=== PATIENT | female | born 1985 | race Caucasian/White ===

== ENCOUNTER 2020-08-16 22:51 | Inpatient (IN) ==
[2020-08-16] MEDS ORDERED: LACTATED RINGER'S 1,000 ML IV PRN (23:06)
--- NOTE | 2020-08-16 23:16 | Obstetrical Progress Note ---
Date of Service August 16, 2020 Subjective Admit Note 35 F P000 at 38.5 weeks admitted in active labor. Cervix 8/100/0/vertex/intact. GBS is negative. Covid testing is pending. FHT Cat 1. Will admit and anticipate normal delivery.
[2020-08-16] MEDS: OXYTOCIN 30 UNITS/500 ML BAG IV PRN (23:53)
--- NOTE | 2020-08-17 00:17 | Delivery Summary ---
Vaginal Delivery Summary Date of Service August 17, 2020 Vaginal Delivery Summary Delivery Note live male ANDRES over intact perineum with delayed cord clamping and Apgars 8/9 weight pending. Cord blood obtained and placenta delivered spontaneously and intact. Small ronald-urethral tear noted. 1% Lidocaine plain used to infiltrate region and 4/0 Vicryl suture placed. EBL 250 ml. Final sponge, needle and instrument count are correct. Mom and baby stable
[2020-08-17] MEDS: OXYTOCIN 30 UNITS/500 ML BAG IV PRN (00:31)
[2020-08-17] MEDS ORDERED: SUPERCREAM 0.870% 15 GM JAR EXT PRN (00:49)
[2020-08-17] MEDS ORDERED: DIPHTHERIA/TETANUS/PERTUSSIS 0.5 ML SYR/VIAL IM ONE (00:49)
[2020-08-17] MEDS ORDERED: BENZOCAINE 20% AER SPR 82.5 GM CAN EXT PRN (00:49)
[2020-08-17] MEDS ORDERED: ACETAMINOPHEN 325 MG TAB PO PRN (00:49)
[2020-08-17] MEDS ORDERED: OXYTOCIN 30 UNITS/500 ML BAG IV PRN (00:49)
[2020-08-17] MEDS ORDERED: HYDROCORTISONE ACETATE 25 MG SUPP PR PRN (00:49)
[2020-08-17] MEDS ORDERED: IBUPROFEN 600 MG TAB PO PRN (00:49)
[2020-08-17] MEDS ORDERED: bisacodyL 10 MG SUPP PR PRN (00:49)
[2020-08-17] MEDS ORDERED: LACTATED RINGER'S 1,000 ML IV SCH (00:49)
[2020-08-17 06:38] LABS: Hematocrit (blood only) 37.5 % (37-47); Hemoglobin 12.9 g/dL (12.0-16.0); Mean Corpuscular Hemoglobin 33.1 pg (25-34); Mean Corpuscular Hgb Conc 34.4 g/dL (32-36); Mean Corpuscular Volume 96.2 fL (80-100); Mean Platelet Volume 11.2 fL (7.4-10.4); Platelet Count 180 K/uL (130-400); RDW Coefficient of Variation 13.2 % (11.5-14.5); RDW Standard Deviation 46.1 fL (36.4-46.3)
[2020-08-17] MEDS ORDERED: LIDOCAINE HCL 1% 20 ML VIAL ONE (07:11)
[2020-08-17] MEDS ORDERED: ERYTHROMYCIN OP OINT 1 GM PKT ONE (07:12)
[2020-08-17] MEDS: DOCUSATE SODIUM 100 MG CAP PO SCH ×2 (08:37→19:49)
[2020-08-17] MEDS: FERROUS SULFATE 325 MG TAB PO SCH (08:37)
[2020-08-17] MEDS: PRENATAL VITAMIN 1 TAB PO SCH (08:38)
--- NOTE | 2020-08-17 09:26 | Obstetrical Progress Note ---
Date of Service August 17, 2020 Assessment & Plan Admission and Anticipated Discharge Date Admission Date: August 16, 2020 Subjective Patient is seen and examined. She feels well, no complaints. Ambulating without dizziness Voiding without difficulty Tolerating regular diet with out N&V Bleeding is minimal No fever/ chills/ CP/ SOB/ N&V/ Leg pain Breast feeding without problems Vital Signs Temp Pulse Pulse Resp BP BP Pulse Ox 08/17/20 03:25 36.4 C L 103 H 16 119/83 97 08/17/20 02:41 109 H 104/73 08/17/20 02:26 82 115/68 08/17/20 02:11 73 18 115/61 08/17/20 01:56 76 117/63 08/17/20 01:42 71 18 115/61 08/17/20 01:27 76 113/64 08/17/20 01:12 70 18 126/58 L 08/17/20 00:57 76 18 118/60 08/17/20 00:42 36.9 C 80 18 121/77 08/17/20 00:27 88 18 123/76 08/17/20 00:11 131 H 18 119/65 08/17/20 00:00 100 H 138/78 08/16/20 23:30 99 H 136/84 Lab Results 08/16/20 08/16/20 08/17/20 Range/Units 23:15 23:15 06:24 WBC 17.60 H (4.8-10.8) K/uL RBC 3.90 L (4.2-5.4) M/uL Hgb 12.9 (12.0-16.0) g/dL Hct 37.5 (37-47) % MCV 96.2 (80-100) fL MCH 33.1 (25-34) pg MCHC 34.4 (32-36) g/dL RDW Std Deviation 46.1 (36.4-46.3) fL RDW Coeff of Jack 13.2 (11.5-14.5) % Plt Count 180 (130-400) K/uL MPV 11.2 H (7.4-10.4) fL COVID-19 Eval [facility] SARS-CoV-2, RNA, NAAT NEGATIVE (NEGATIVE) PE: General: Alert, orientedx3, NAD Abd: soft, NT, fundus firm, below Umbilicus Perineum intact, Lochia rubra minimal Ext; NT, no edema AP: 35 yo s/p , ppd# 1 VSS Afebrile doing well Continue routine care All questions were answered D/C home tomorrow Results & Data ([facility]) Vital Signs (Past 12 Hours) Vital Signs Temp Pulse Pulse Resp BP BP Pulse Ox 08/17/20 03:25 36.4 C L 103 H 16 119/83 97 08/17/20 02:41 109 H 104/73 08/17/20 02:26 82 115/68 08/17/20 02:11 73 18 115/61 08/17/20 01:56 76 117/63 08/17/20 01:42 71 18 115/61 08/17/20 01:27 76 113/64 08/17/20 01:12 70 18 126/58 L 08/17/20 00:57 76 18 118/60 08/17/20 00:42 36.9 C 80 18 121/77 08/17/20 00:27 88 18 123/76 08/17/20 00:11 131 H 18 119/65 08/17/20 00:00 100 H 138/78 08/16/20 23:30 99 H 136/84
[2020-08-18 06:27] LABS: Basophils # (auto) 0.04 K/uL (0-0.2); Basophils % (auto) 0.4 %; Eosinophils # (auto) 0.06 K/uL (0-0.5); Eosinophils % (auto) 0.6 %; Immature Granulocytes # (auto) 0.05 K/uL (0.00-0.02); Immature Granulocytes % (auto) 0.5 %; Lymphocytes # (auto) 2.41 K/uL (1.2-3.4); Lymphocytes % (auto) 23.4 %; Mean Corpuscular Hgb Conc 34.3 g/dL (32-36); Mean Corpuscular Volume 96.2 fL (80-100); Mean Platelet Volume 10.7 fL (7.4-10.4); Monocytes # (auto) 0.83 K/uL (0.11-0.59); Monocytes % (auto) 8.1 %; Neutrophils # (auto) 6.92 K/uL (1.4-6.5); Platelet Count 175 K/uL (130-400); RDW Coefficient of Variation 13.5 % (11.5-14.5); RDW Standard Deviation 47.5 fL (36.4-46.3); Red Blood Count 3.64 M/uL (4.2-5.4); White Blood Count 10.31 K/uL (4.8-10.8)
[2020-08-18] MEDS: DOCUSATE SODIUM 100 MG CAP PO SCH (09:06)
[2020-08-18] MEDS: FERROUS SULFATE 325 MG TAB PO SCH (09:06)
[2020-08-18] MEDS: PRENATAL VITAMIN 1 TAB PO SCH (09:07)
--- NOTE | 2020-08-18 11:28 | Obstetrical Progress Note ---
Date of Service August 18, 2020 Assessment & Plan Admission and Anticipated Discharge Date Admission Date: August 16, 2020 Subjective Patient is seen and examined. She feels well, no complaints. Ambulating without dizziness Voiding without difficulty Tolerating regular diet with out N&V Bleeding is minimal No fever/ chills/ CP/ SOB/ N&V/ Leg pain Breast feeding without problems Vital Signs Temp Pulse Resp BP 08/18/20 08:00 36.8 C 75 16 115/74 08/18/20 00:09 36.7 C 80 18 114/70 08/17/20 19:52 36.5 C 90 18 118/74 08/17/20 16:40 36.9 C 78 18 106/65 08/17/20 11:40 36.4 C L 66 20 119/72 Lab Results 08/16/20 08/16/20 08/17/20 Range/Units 23:15 23:15 06:24 WBC 17.60 H (4.8-10.8) K/uL RBC 3.90 L (4.2-5.4) M/uL Hgb 12.9 (12.0-16.0) g/dL Hct 37.5 (37-47) % MCV 96.2 (80-100) fL MCH 33.1 (25-34) pg MCHC 34.4 (32-36) g/dL RDW Std Deviation 46.1 (36.4-46.3) fL RDW Coeff of Jack 13.2 (11.5-14.5) % Plt Count 180 (130-400) K/uL MPV 11.2 H (7.4-10.4) fL Immature Gran % (Auto) % Neut % (Auto) % Lymph % (Auto) % [place] % (Auto) % Eos % (Auto) % Baso % (Auto) % Neut # (Auto) (1.4-6.5) K/uL Lymph # (Auto) (1.2-3.4) K/uL [place] # (Auto) (0.11-0.59) K/uL Eos # (Auto) (0-0.5) K/uL Baso # (Auto) (0-0.2) K/uL Immature Gran # (Auto) (0.00-0.02) K/uL COVID-19 Eval [facility] SARS-CoV-2, RNA, NAAT NEGATIVE (NEGATIVE) 08/18/20 Range/Units 05:43 WBC 10.31 (4.8-10.8) K/uL RBC 3.64 L (4.2-5.4) M/uL Hgb 12.0 (12.0-16.0) g/dL Hct 35.0 L (37-47) % MCV 96.2 (80-100) fL MCH 33.0 (25-34) pg MCHC 34.3 (32-36) g/dL RDW Std Deviation 47.5 H (36.4-46.3) fL RDW Coeff of Jack 13.5 (11.5-14.5) % Plt Count 175 (130-400) K/uL MPV 10.7 H (7.4-10.4) fL Immature Gran % (Auto) 0.5 % Neut % (Auto) 67.0 % Lymph % (Auto) 23.4 % [place] % (Auto) 8.1 % Eos % (Auto) 0.6 % Baso % (Auto) 0.4 % Neut # (Auto) 6.92 H (1.4-6.5) K/uL Lymph # (Auto) 2.41 (1.2-3.4) K/uL [place] # (Auto) 0.83 H (0.11-0.59) K/uL Eos # (Auto) 0.06 (0-0.5) K/uL Baso # (Auto) 0.04 (0-0.2) K/uL Immature Gran # (Auto) 0.05 H (0.00-0.02) K/uL COVID-19 Eval Order SARS-CoV-2, RNA, NAAT (NEGATIVE) PE: General: Alert, orientedx3, NAD Abd: soft, NT, fundus firm, below Umbilicus Perineum intact, Lochia rubra minimal Ext; NT, no edema AP: 35 yo s/p , ppd# 2 VSS Afebrile doing well Continue routine care All questions were answered D/C home , f/u in office Results & Data ([facility]) Vital Signs (Past 12 Hours) Vital Signs Temp Pulse Resp BP 08/18/20 08:00 36.8 C 75 16 115/74 01/17/21 00:09 36.7 C 80 18 114/70
[2020-08-18] MEDS ORDERED: bisacodyL 5 MG TABEC PO SCH (20:00)
--- NOTE | 2020-08-29 11:29 | Coding Query ---
CODING QUERY To promote full compliance with coding requirements relating to patient care, provider participation is requested in all cases of mission manager uncertainty. Please assist us with the question(s) below: Coding Question(s): The Vaginal Delivery Summary documents Date of Service of 08/17/20, however, the EMR shows date of delivery to be 08/16/20. Please specify below, regarding the date of delivery. (x ) 08/16/20 ( ) 08/17/20 ( ) Other: Please Specify Physician's Response(s): Thank you Carmencita Silver Principal Diagnosis: "that condition established after study, to be chiefly responsible for occasioning the admission of the patient to the hospital for care." Co-Existing Principal Diagnosis: "when two or more diagnoses equally meet the criteria for principal diagnosis as determined by the circumstances of admission, diagnostic work up, and/or therapy provided, and the Alphabetic Index, Tabular List, or another coding guideline does not provide sequencing direction, any one of the diagnoses may be sequenced first." "When the physician has documented what appears to be a current diagnosis in the body of the record, but has not included the diagnosis in the final diagnostic statement, the physician should be asked whether the diagnosis should be added." (Source [facility] 2 QTR90. p3-4) RICKY
== END 2020-08-18 13:00 | disposition home or self-care (01) | DRG 807 ==
LOC: OPB 22:51 → 4S1 22:55 → 4S2 08-17 03:35

== ENCOUNTER 2024-01-26 14:09 | Inpatient (IN) ==
[2024-01-26] MEDS: OXYTOCIN 10 UNITS/ML VIAL ONE (14:20)
[2024-01-26] MEDS ORDERED: LIDOCAINE 1% LOCAL 20 ML VIAL INFIL PRN (14:23)
[2024-01-26] MEDS ORDERED: OXYTOCIN 30 UNITS/NSS 30 UNITS/500 ML BAG IV PRN (14:23)
[2024-01-26] MEDS ORDERED: BENZOCAINE 20% SPRY 85 APPLN/85 GM CAN EXT PRN (14:27)
[2024-01-26] MEDS ORDERED: HYDROCORTISONE ACETATE 25 MG SUPP PR PRN (14:27)
[2024-01-26] MEDS ORDERED: OXYTOCIN 10 UNITS/ML 10ML VIAL IM ONE (14:27)
[2024-01-26] MEDS ORDERED: IBUPROFEN 600 MG TAB PO PRN (14:27)
[2024-01-26] MEDS ORDERED: ACETAMINOPHEN 325 MG TAB PO PRN (14:27)
[2024-01-26] MEDS ORDERED: bisacodyL 10 MG SUPP PR PRN (14:27)
--- NOTE | 2024-01-26 14:31 | Delivery Summary ---
Vaginal Delivery Summary Date of Service January 26, 2024 Vaginal Delivery Summary Patient is 38 yo at 38.5 who presented to L&D in active labor and was found to be fully dilated and desired to push. Her contractions started as irregular around 11 am and then got more regular and painful around 1 pm. No LOF/VB, + FM's. GBS negative She pushed with 2 contractions and delivered the head and then shoulders with minimal traction. Tight nuchal cordx1, reduced. The baby was handed off to the mother. The cord was clampedx2 and cut at 1 minute. The vagina and perineum were checked and found to be intact. The placenta was delivered spontaneously as intact and complete. The uterus was explored and found to be empty. EBL was 100 ml. The fundus was firm The baby was a viable male infant, Apgars 8/9, the weight is pending The mother and the baby tolerated the procedure well. No complications happened and I was present during whole procedure.
[2024-01-26 15:24] LABS: Hematocrit (blood only) 40.9 % (37.0-47.0); Hemoglobin 13.9 g/dl (12.0-16.0); Mean Corpuscular Hemoglobin 32.9 pg (25.0-34.0); Mean Corpuscular Volume 96.7 fL (80.0-100.0); Mean Platelet Volume 10.9 fL (9.4-12.4); Platelet Count 177 K/uL (130-400); RDW Coefficient of Variation 13.5 % (11.5-14.5); RDW Standard Deviation 47.8 fL (36.4-46.3); Red Blood Count 4.23 M/uL (4.20-5.40); White Blood Count 11.46 K/ul (4.8-10.8)
[2024-01-26] MEDS: DOCUSATE SODIUM 100 MG CAP PO SCH (20:58)
--- OUTSIDE RECORDS SUMMARY | 2024-01-27 03:31 | External Medical Summary | Summary of Care ---
Author Name Unknown Organization [facility] Address [address] [place] [address] Phone [phone] Care Team Providers Care Board Operator Name Role Phone Tanya Diane Boatengly Primary Care Provider Reason for Visit * Reason Comments Outpatient Testing Encounter Details Date Type Department Care Team (Late st Contact Info) Description 11/16/2023 8:20 AM EDT Laboratory Laboratory, [facility] [address] [place] [address] [facility] [address] [place] [address] Encounter for supervision of other normal in second trimester Allergies Active Allergy Reactions Criticality Noted Date Comments Pollen 12/22/2019 documented as of this encounter (statuses as of 11/16/2023) Medications Medication Sig Dispensed Refills Start Date End Date Status 19 29-1 MG Oral Tablet Chewable Take by mouth. 0 Activ e documented as of this encounter (statuses as of 11/16/2023) Active Problems Problem Noted Date Diagnosed Date Choroid plexus cysts, , affecting care of mother, antepartum 10/19/2023 Overview: Low risk NIPT Elderly multigravida 06/28/2023 Allergic conjunctivitis, bilateral 03/26/2022 Allergic rhinitis 03/26/2022 Supervision of normal 03/13/2020 Last Assessment & Plan: 06/07/2020 Tdap Vaccine administered per clinic protocol. Pt given VIS(vaccine information sheet) Deanna Morin LPN Encounter for other screenin g for malignant neoplasm of breast 09/12/2018 Overview: Patient s lifetime risk of breast cancer is up to 33% Beginning at age her current age (10 years prior to the first breast cancer diagnosis in the family), it is recommended that Ms. Hinds have both mammogram and breast MRI annually, alternating every 6 months (for example, mammogram in September and MRI in March). Family history of malignant neoplasm of breast 0 09/09/2018 Overview: Mother (living, 65) had breast cancer at age 47. Had negative breast cancer-related genetic testing. Paternal aunt (living, 62) had breast cancer at age 40. Paternal grandfather (living, 92) had prostate cancer in late 80s-90. Treated and no longer problematic Paternal great-aunt (sister of PGM, ) had breast cancer Paternal great-aunt (brother of PGM, ) had prostate cancer Estimated Date of Delivery Comme nts Yes 02/04/2024 Based on last me nstrual period of 04/30/2023 (Exact Date) documented as of this encounter (statuses as of 11/16/2023) Immunizations Name Administration Dates Next Due COVID-19, MRNA-LNP, 23-24, P F, 30 MCG/0.3 mL, 12 YRS AND ABOVE, IM (PFIZER-Comirnaty) 05/14/2023 Seasonal Influenza, PF, 6 M & above, IM , (FluLaval or Fluzone) 05/03/2023,05/08/2020 TDAP (age 10 and older)(Boostrix) 11/16/2023,01/2020 documented as of this encounter Social History Tobacco Use Types Packs/Day Years Used Date Smoking Tobacco: Never Smokeless Tobacco: Never Comments:No passive smoke ex posures Alcohol Use Standard Drinks/Week Comments Not Currently 1.7 (1 standard drink = 0.6 oz p ure alcohol) PHQ-2 Answer Date Recorded PHQ-2 Score 0 03/04/2020 Hunger Vital Sign Answer Date Recorded Within the past 12 months, y ou worried that your food would run out before you got the money to buy more. Never true 06/28/20 23 Within the past 12 months, t he food you bought just didn't last and you didn't have money to get more. Never true 06/28/2023 [place] Depression Scale Answer Date Recorded [place] Depression Scale Total 4 06/28/2023 The thought of harming myself has occurred to me . Never 06/28/2023 Estimated Date of Delivery Comme nts Yes 02/04/2024 Based on last me nstrual period of 04/30/2023 (Exact Date) Sex and Gender Information Value Date Recorded Sex Assigned at Female 06/28/2023 1:10 PM EST Gender Identity Female 06/28/2023 1:10 PM EST Sexual Orientation Straight 06/28/2023 1: 10 PM EST Job Start Date Occupation Industry Not on file Not on file Not on file documented as of this encounter Plan of Treatment Upcoming Encounters Date Type Department Care Team (Late st Contact Info) Description 11/30/2023 8:30 AM EDT Office Visit Gynecology/Obstetrics [facility] [address] [place] [address] Christin Penny CRNP [address] [place] [address] 04/21/2024 7:15 AM EDT Office Visit Gynecology/Obstetrics [facility] [address] [place] [address] Mine Morales PA-C [address] [place] [address] Pending Results Name Type Priority Associated Diagnoses Date /Time 50-G GESTATIONAL GLUCOSE, 1 HOUR Lab Routine Encounter for supervision of other normal in second trimester 11/16/2023 9:27 AM EDT SYPHILIS ANTIBODY SCREEN WITH REFLEX TO RPR Lab Routine Encounter for supervision of other normal in second trimester 11/16/2023 9:27 AM EDT CBC WITH WBC DIFFERENTIAL AND ANEMIA REFLEX WORKUP Lab Routine Encounter for supervision of other normal in second trimester 11/16/2023 9:27 AM EDT SYPHILIS ANTIBODY SCREEN Lab Routine Encounter for supervision of other normal in second trimester 11/16/2023 9:27 AM EDT ANEMIA CBC Lab Routine Encounter for supervision of other normal in second trimester 11/16/2023 9:27 AM EDT DIFFERENTIAL, AUTOMATED Lab Routine Encounter for supervision of other normal in second trimester 11/16/2023 9:27 AM EDT ANEMIA REFLEX CHEMISTRY HOLD Lab Routine Encounter for supervision of other normal in second trimester 11/16/2023 9:27 AM EDT Health Maintenance Due Date Last Done Comments Hepatitis B (1 of 3 - 19+ 3-dose series) 2006 HPV/Co-Test 2017 Depression Screening 02/26/2021 02/27/2020 Cervical Cancer Screening 09/29/2024 Pap Smear 09/29/2024 09/29/2021, 09/12/2018, 08/19/2011 DTaP,Tdap,and Td Vaccines (3 - Td or Tdap) 11/15/2033 11/16/2023, 06/07/2020 GARDASIL-HPV IMMUNIZATION SERIES Completed 02/15/2014, 10/04/2013, 08/14/2013 Influenza Vaccine (FLU shot) Completed 09/2022, 05/08/2020, 05/08/2020 COVID-19 Vaccine Completed 05/14/2023 MENINGOCOCCAL (MENACTRA/MENVEO) Aged Out No longer eligible b ased on patient's age to complete this topic Pneumococcal Vaccine: Pediatrics (0 to 5 Years) and At-Risk Patients (6 to 64 Years) Aged Out No longer eligible b ased on patient's age to complete this topic documented as of this encounter Medical Devices Not on filedocumented as of this encounter Visit Diagnoses Diagnosis Encounter for supervision of other normal in second trimester documented in this encounter Care Teams Board Operator Relationship Specialty Start Date End Date Diane Martínez DO [address] [place] [address] PCP - General Family Medicine 09/03/11 documented as of this encounter
--- OUTSIDE RECORDS SUMMARY | 2024-01-27 03:31 | External Medical Summary | Summary of Care ---
Author Name Unknown Organization [facility] Address [address] [place] [address] Phone [phone] Care Team Providers Care Extrusion Line Operator Name Role Phone Ericrosa Diane Linn DO Primary Care Provider Reason for Visit * Reason Comments Return Visit Encounter Details Date Type Department Care Team (Late st Contact Info) Description 01/25/2024 8:30 AM EDT Office Visit Gynecology/Obstetric s [facility] [address] [place] [address] Christin Penny CRNP [address] [facility] [place] [address] Encounter for supervision of other normal in third trimester*; Multigravida of advanced maternal age in third trimester; Choroid plexus cyst of fetus affecting care of mother, antepartum, single or unspecified fetus Allergies Active Allergy Reactions Criticality Noted Date Comments Pollen 12/22/2019 documented as of this encounter (statuses as of 01/25/2024) Medications Medication Sig Dispensed Refills Start Date End Date Status 19 29-1 MG Oral Tablet Chewable Take by mouth. Activ e documented as of this encounter (statuses as of 01/25/2024) Active Problems Problem Noted Date Diagnosed Date [...] as of this encounter (statuses as of 01/25/2024) Immunizations Name Administration Dates Next Due COVID-19, [...] p ure alcohol) PHQ-2 Answer Date Recorded PHQ Adult Total Score 0 11/30/2023 Hunger Vital Sign Answer Date Recorded Within the past 12 months, y ou worried that your food would run out before you got the money to buy more. Never true 06/28/20 23 Within the past 12 months, t he food you bought just didn't last and you didn't have money to get more. Never true 06/28/2023 [place] Depression Scale Answer Date Recorded [place] Depression Scale Total 3 11/30/2023 The thought of harming myself has occurred to me . Never 11/30/2023 Childcare Answer Date Recorded Do you feel overwhelmed with taking care of a child, family member or friend? No 06/28/2023 Does your family need help f inding childcare? (Household - for ages 0-17 years) Not on file 06/28/2023 Clothing Answer Date Recorded Have you been unable to get clothing when it was really needed? No 06/28/2023 Is your family able to get c lothes or diapers when needed? (Household - for ages 0-17 years) Not on file 06/28/2023 Personal Safety Answer Date Recorded Do you feel unsafe or have concerns for your saf ety? No 06/28/2023 Do you have concerns for you r family's safety? (Household - for ages 0-17 years) Not on file 06/28/2023 Utilities Answer Date Recorded Do you have trouble paying y our heating, water, or electric bill? No 06/28/2023 Is your family able to pay t he heat, water, or electric bill? (Household - for ages 0-17 years) Not on file 06/28/2023 Does your family have access to good internet? (Household - for ages 0-17 years) Not on file 06/28/2023 Employment Status Answer Date Recorded Are you unemployed or without regular income? No 06/28/2023 Does the household have a re gular source of income? (Household - for ages 0-17 years) Not on file 06/28/2023 Social Connections Answer Date Recorded How often do you feel lonely or isolated from th ose around you? Never 06/28/2023 Financial Resource Strain Answer Date R ecorded Do you have any trouble payi ng for your medications, or do you think you might in the future? No 06/28/2023 Does your family have troubl e paying for medicine? (Household - for ages 0-17 years) Not on file 06/28/2023 Transportation Needs Answer Date Record ed READ ONLY Do you have troubl e getting a ride to medical visits or work? Never True 06/28/2023 Does your family have a hard time getting a ride to doctors visits? (Household - for ages 0-17 years) Not on file 06/28/2023 Has lack of transportation k ept you from medical appointments, meetings, work, or from getting things needed for daily living? Check all that apply. (Adult - for ages 18 years and over) Not on file 06/28/2023 Do you (or your family) have trouble finding or paying for a ride (transportation)? (Household - for ages 0-17 years) Not on file 06/28/2023 Housing Stability Answer Date Recorded Do you currently live in a s helter or have no steady place to sleep at night? No 06/28/2023 READ ONLY Do you think you a re at risk of becoming homeless? No 06/28/2023 Does your family worry about paying for your home or becoming homeless? (Household - for ages 0-17 years) Not on file 1 08/28/2022 Are you homeless or worried that you might be in the future? (Adult - for ages 18 years and over) Not on file Are you (or your family) archie eless or worried that you might be in the future? (Household - for ages 0-17 years) Not on file Food Insecurity Answer Date Recorded Do you need food for this week? No 06/28/2023 Are you able to get enough f ood for your family? (Household - for ages 0-17 years) Not on file 06/28/2023 Does your family need food t his week? (Household - for ages 0-17 years) Not on file 06/28/2023 Do you always have enough fo od for your family? (Household - for ages 0-17 years) Not on file 06/28/2023 Estimated Date of Delivery Comme nts [...] on file documented as of this encounter Last Filed Vital Signs Vital Sign Reading Time Taken Comments Blood Pressure 100/64 01/25/2024 8:27 AM EDT Pulse - - Temperature - - Respiratory Rate - - Oxygen Saturation - - Inhaled Oxygen Concentration - - Weight 71.6 kg (157 lb 12.8 oz) 01/25/2024 8:27 AM EDT Height - - Body Mass Index 25.47 01/18/2024 8:45 AM EDT documented in this encounter Progress Notes * Christin Penny CRNP - 01/25/2024 8:31 AM EDT 38w4d Having some irregular menstrual cramping x1 day. No bleeding, leaking. Good movement. Reviewed labor signs and [facility], when to call. Return in 1 week, sooner prn. CASEY Aleman * Alicia Plaza LPN - 01/25/2024 8:27 AM EDT 38w4d Denies vaginal bleeding/rom + movement Noticing some period like cramping since yesterday- nothing consistent documented in this encounter Plan of Treatment Upcoming Encounters Date Type Department Care Team (Late st Contact Info) Description 02/01/2024 8:45 AM EDT Office Visit Gynecology/Obstetrics [place] [phone] Christin Penny CRNP [address] [place] [address] 04/21/2024 7:15 AM EDT Office Visit Gynecology/Obstetrics [facility] [address] [place] [address] Mine Morales PA-C [address] [place] [address] Health Maintenance Due Date Last Done Comments Hepatitis B (1 of 3 - 19+ 3-dose series) 2006 Diabetes Screening 10/07/2014 10/08/2011 HPV/Co-Test 2017 Cervical Cancer Screening 09/29/2024 Pap Smear 09/29/2024 09/29/2021, 09/12/2018, 08/19/2011 Depression Screening 11/29/2024 11/30/2023 DTaP,Tdap,and Td Vaccines (3 - Td or [...] Encounter for supervision of other normal in third trimester- Primary Multigravida of advanced maternal age in third trimester Choroid plexus cyst of fetus affecting care of mother, antepartum, single or unspecified fetus documented in this encounter Care Teams Extrusion Line Operator Relationship Specialty Start Date End Date Diane Martínez DO [facility] [address] [place] [address] PCP - General Family Medicine 09/03/11 documented as of this encounter
--- OUTSIDE RECORDS SUMMARY | 2024-01-27 03:31 | External Medical Summary | Summary of Care ---
Author Name Unknown Organization [facility] Address [address] [place] [address] Phone [phone] Care Team Providers Care Access Registrar Name Role Phone Ericrosa Diane Linn DO Primary Care Provider Reason for Visit * Reason Comments Return Visit Encounter Details Date Type Department Care Team (Late st Contact Info) Description 12/28/2023 8:45 AM EDT Office Visit Gynecology/Obstetric s [facility] [address] [place] [address] Christin Penny CRNP [address] [place] [address] Encounter for supervision of other normal in third trimester*; Multigravida of advanced maternal age in third trimester; Choroid plexus cyst of fetus affecting care of mother, antepartum, single or unspecified fetus Allergies Active Allergy Reactions Criticality Noted Date Comments Pollen 12/22/2019 documented as of this encounter (statuses as of 12/28/2023) Medications Medication Sig Dispensed Refills Start Date End Date Status 19 29-1 MG Oral Tablet Chewable Take by mouth. Activ e documented as of this encounter (statuses as of 12/28/2023) Active Problems Problem Noted Date Diagnosed Date [...] as of this encounter (statuses as of 12/28/2023) Immunizations Name Administration Dates Next Due COVID-19, [...] money to get more. Never true 06/28/2023 [place] Depression Scale Answer Date Recorded [place] Depression Scale Total 3 11/30/2023 The thought of harming myself has occurred to me . Never 11/30/2023 Estimated Date of Delivery Comme nts Yes [...] Sign Reading Time Taken Comments Blood Pressure 96/70 12/28/2023 8:26 AM EDT Pulse - - Temperature - - Respiratory Rate - - Oxygen Saturation - - Inhaled Oxygen Concentration - - Weight 70.8 kg (156 lb) 12/28/2023 8:26 AM EDT Height - - Body Mass Index 25.18 11/16/2023 8:46 AM EDT documented in this encounter Progress Notes * Christin Penny CRNP - 12/28/2023 8:31 AM EDT 34w4d Baby moving well, no ctx/leaking/bleeding. Provided with labor instructions. Discussed GBS swab at next visit. Return in 2 weeks. CASEY Aleman * Alicia Plaza LPN - 12/28/2023 8:26 AM EDT 34w4d Denies vaginal bleeding/rom + movement Labor instructions given today documented in this encounter Plan of Treatment Upcoming Encounters Date Type Department Care Team (Late st Contact Info) Description 01/11/2024 8:30 AM EDT Office Visit Gynecology/Obstetrics [facility] [address] [place] [address] Christin Penny CRNP [address] [place] [address] 01/18/2024 8:45 AM EDT Office Visit Gynecology/Obstetrics [facility] [address] [place] [address] Gibran Cox MD [address] [place] [address] 01/25/2024 8:30 AM EDT Office Visit Gynecology/Obstetrics [facility] [address] [place] [address] Christin Penny CRNP [address] [place] [address] 02/01/2024 8:45 AM EDT Office Visit Gynecology/Obstetrics [facility] [address] [place] [address] Christin Penny CRNP [address] [place] [address] 04/21/2024 7:15 AM EDT Office Visit Gynecology/Obstetrics [facility] [address] [place] [address] Mine Morales PA-C [address] [place] [address] Health Maintenance Due Date Last Done Comments [...] fetus documented in this encounter Care Teams Access Registrar Relationship Specialty Start Date End Date Diane Martínez DO [address] [place] [address] PCP - General Family Medicine 09/03/11 documented as of this encounter
--- OUTSIDE RECORDS SUMMARY | 2024-01-27 03:31 | External Medical Summary | Summary of Care ---
Author Name Unknown Organization [facility] Address [address] [place] [address] Phone [phone] Care Team Providers Care Behavioral Sciences Instructor Name Role Phone Ericrosa Diane Linn DO Primary Care Provider Reason for Visit * Reason Comments Return Visit Encounter Details Date Type Department Care Team (Late st Contact Info) Description 11/30/2023 8:30 AM EDT Office Visit Gynecology/Obstetric s [facility] [address] [place] [address] Christin Penny CRNP [address] [facility] [place] [address] Encounter for supervision of other normal in third trimester*; Multigravida of advanced maternal age in third trimester; Choroid plexus cyst of fetus affecting care of mother, antepartum, single or unspecified fetus Allergies Active Allergy Reactions Criticality Noted Date Comments Pollen 12/22/2019 documented as of this encounter (statuses as of 11/30/2023) Medications Medication Sig Dispensed Refills Start Date End Date Status 19 29-1 MG Oral Tablet Chewable Take by mouth. 0 Activ e documented as of this encounter (statuses as of 11/30/2023) Active Problems Problem Noted Date Diagnosed Date [...] as of this encounter (statuses as of 11/30/2023) Immunizations Name Administration Dates Next Due COVID-19, [...] money to get more. Never true 06/28/2023 [place] Depression Scale Answer Date Recorded [place] Depression Scale Total 3 11/30/2023 The thought [...] Sign Reading Time Taken Comments Blood Pressure 98/60 11/30/2023 8:18 AM EDT Pulse - - Temperature - - Respiratory Rate - - Oxygen Saturation - - Inhaled Oxygen Concentration - - Weight 69.4 kg (153 lb) 11/30/2023 8:18 AM EDT Height - - Body Mass Index 24.69 11/16/2023 8:46 AM EDT documented in this encounter Progress Notes * Christin Penny CRNP - 11/30/2023 8:28 AM EDT 30w4d Doing well, good movement. No cramping/bleeding. Working on getting a breast pump. Return in 2 weeks. CASEY Aleman documented in this encounter Plan of Treatment Upcoming Encounters Date Type Department Care Team (Late st Contact Info) Description 12/14/2023 8:30 AM EDT Office Visit Gynecology/Obstetrics [facility] [address] [facility] [place] [address] Christin Penny CRNP [address] [place] [address] 12/28/2023 8:45 AM EDT Office Visit Gynecology/[facility]s [facility] [address] [place] [address] BackChristin vasquez CRNP [address] [place] [address] 01/11/2024 8:30 AM EDT Office Visit Gynecology/[facility]s [facility] [address] [address] Christin Penny CRNP [address] [place] [address] 01/18/2024 8:45 AM EDT Office Visit [facility] [address] [place] [address] Gibran Cox MD [address] [place] [address] 01/25/2024 8:30 AM EDT Office Visit Gynecology/Obstetrics [facility] [address] [place] [address] Christin Penny CRNP [address] [place] [address] 02/01/2024 8:45 AM EDT Office Visit Gynecology/[facility]s [facility] [address] [place] [address] Christin Penny CRNP [address] [place] [address] 04/21/2024 7:15 AM EDT Office Visit Gynecology/[facility]s [facility] [address] [place] [address] Mine Morales PA-Elizabeth [address] [place] [address] Health Maintenance Due Date Last Done Comments Hepatitis B (1 of 3 - 19+ 3-dose series) 2006 HPV/Co-Test 2017 Cervical Cancer Screening 09/29/2024 Pap [...] fetus documented in this encounter Care Teams Behavioral Sciences Instructor Relationship Specialty Start Date End Date Diane Martínez DO [address] [place], [place] [address] PCP - General Family Medicine 09/03/11 documented as of this encounter
--- OUTSIDE RECORDS SUMMARY | 2024-01-27 03:31 | External Medical Summary ---
Author Name Unknown Address Unknown Organization [id number]:LAB[facility]ATORY [place] [address] [place] [address] Laboratory Report Ordering Provider Test Date Status JARON ARTHUR 01/11/2024 08:44:01 Final Observation Date Value Abnormality Reference (Units ) Status Streptococcus agalactiae DNA [Presence] in Specimen by KATELIN with probe detection 01/11/2024 08:44:01 Negative Negative Final No Group B Streptococcus det ected by culture-enhanced PCR (amplified probe). GBS GBSCT - [facility] 01/11/2024 08:44:01 0.0 Final GBS SPCCT - [facility] 01/11/2024 08:44:01 30.1 Final Performing Location LABORATORY [facility] [place] [facility] [place] [address]
--- OUTSIDE RECORDS SUMMARY | 2024-01-27 03:31 | External Medical Summary | Summary of Care ---
Author Name Unknown Organization [facility] Address [address] [place] [address] Phone [phone] Care Team Providers Care Supervisor Sterile Processing Name Role Phone Ericrosa Diane Linn DO Primary Care Provider Reason for Visit * Reason Comments Return Visit Encounter Details Date Type Department Care Team (Late st Contact Info) Description 01/11/2024 8:30 AM EDT Office Visit Gynecology/Obstetric s [facility] [address] [place] [address] Christin Penny CRNP [address] [facility] [place] [address] Encounter for supervision of other normal in third trimester*; Multigravida of advanced maternal age in third trimester; Choroid plexus cyst of fetus affecting care of mother, antepartum, single or unspecified fetus Allergies Active Allergy Reactions Criticality Noted Date Comments Pollen 12/22/2019 documented as of this encounter (statuses as of 01/11/2024) Medications Medication Sig Dispensed Refills Start Date End Date Status 19 29-1 MG Oral Tablet Chewable Take by mouth. Activ e documented as of this encounter (statuses as of 01/11/2024) Active Problems Problem Noted Date Diagnosed Date [...] as of this encounter (statuses as of 01/11/2024) Immunizations Name Administration Dates Next Due COVID-19, [...] money to get more. Never true 06/28/2023 [place] Depression Scale Answer Date Recorded [place] Depression Scale Total 3 11/30/2023 The thought [...] Sign Reading Time Taken Comments Blood Pressure 98/68 01/11/2024 8:27 AM EDT Pulse - - Temperature - - Respiratory Rate - - Oxygen Saturation - - Inhaled Oxygen Concentration - - Weight 70.7 kg (155 lb 12.8 oz) 01/11/2024 8:27 AM EDT Height - - Body Mass Index 25.15 11/16/2023 8:46 AM EDT documented in this encounter Progress Notes * Christin Penny CRNP - 01/11/2024 8:29 AM EDT 36w4d Baby moving well. No ctx, leaking, bleeding. Has labor instructions. GBS today. 1 week return Cementing Bulk Material Operator Documentation Provider requested electro winning operator. Name of electro winning operator: CASEY Sands * Mone Hernandez MED ASSIST - 01/11/2024 8:27 AM EDT 36w4d Denies vaginal bleeding/rom + movement No concerns GBS swab today Labor instructions given to patient documented in this encounter Plan of Treatment Upcoming Encounters Date Type Department Care Team (Late st Contact Info) Description 01/18/2024 8:45 AM EDT Office Visit Gynecology/Obstetrics [facility] [address] [place] [address] Gibran Cox MD [address] [place] [address] 01/25/2024 8:30 AM EDT Office Visit Gynecology/Obstetrics [facility] [address] [place] [address] Christin Penny CRNP [address] [place] [address] 02/01/2024 8:45 AM EDT Office Visit Gynecology/Obstetrics [facility] [address] [place] [address] Christin Penny CRNP [address] [place] [address] 04/21/2024 7:15 AM EDT Office Visit Gynecology/Obstetrics [facility] [address] [place] [address] Mine Morales PA-C [address] [place] [address] Pending Results Name Type Priority Associated Diagnoses Date /Time GROUP B STREP CULTURE/PCR Lab Routine Encounter for supervision of other normal in third trimester 01/11/2024 8:44 AM EDT Scheduled Orders Name Type Priority Associated Diagnoses Orde r Schedule GROUP B STREP CULTURE/PCR Lab Routine Encounter for supervision of other normal in third trimester Expected: 01/11/2024, Expires: 01/10/2025 Health Maintenance Due Date Last Done Comments [...] fetus documented in this encounter Care Teams Supervisor Sterile Processing Relationship Specialty Start Date End Date Diane Martínez DO [address] [place] [address] PCP - General Family Medicine 09/03/11 documented as of this encounter
--- OUTSIDE RECORDS SUMMARY | 2024-01-27 03:31 | External Medical Summary | Summary of Care ---
Author Name Unknown Organization [facility] Address [address] [place] [address] Phone [phone] Care Team Providers Care Photo Graphics Librarian Name Role Phone Tanya Diane Boatengly Primary Care Provider Reason for Visit * Reason Comments Return Visit Encounter Details Date Type Department Care Team (Late st Contact Info) Description 01/18/2024 8:45 AM EDT Office Visit Gynecology/Obstetric s [facility] [address] [place] [address] Gibran Cox MD [address] [place] [address] Multigravida of advanced maternal age in third trimester*; Choroid plexus cyst of fetus affecting care of mother, antepartum, single or unspecified fetus; Encounter for supervision of other normal in third trimester Allergies Active Allergy Reactions Criticality Noted Date Comments Pollen 12/22/2019 documented as of this encounter (statuses as of 01/18/2024) Medications Medication Sig Dispensed Refills Start Date End Date Status 19 29-1 MG Oral Tablet Chewable Take by mouth. Activ e documented as of this encounter (statuses as of 01/18/2024) Active Problems Problem Noted Date Diagnosed Date [...] as of this encounter (statuses as of 01/18/2024) Immunizations Name Administration Dates Next Due COVID-19, [...] money to get more. Never true 06/28/2023 [place] Depression Scale Answer Date Recorded [place] Depression Scale Total 3 11/30/2023 The thought [...] Sign Reading Time Taken Comments Blood Pressure 98/74 01/18/2024 8:45 AM EDT Pulse - - Temperature - - Respiratory Rate - - Oxygen Saturation - - Inhaled Oxygen Concentration - - Weight 72.6 kg (160 lb) 01/18/2024 8:45 AM EDT Height 167.6 cm (5' 6") 01/18/2024 8:45 AM EDT Body Mass Index 25.82 01/18/2024 8:45 AM EDT documented in this encounter Progress Notes * Gibran Cox MD - 01/18/2024 9:23 AM EDT Pt doing well No complaints RTC 1 week documented in this encounter Nursing Notes * Helen Pearson LPN - 01/18/2024 8:50 AM EDT 37w4d Denies concerns. documented in this encounter Plan of Treatment Upcoming Encounters Date Type Department Care Team (Late st Contact Info) Description 01/25/2024 8:30 AM EDT [facility] [address] [place] [address] Christin Penny CRNP [address] [place] [address] 02/01/2024 8:45 AM EDT [facility] [address] [place] [address] Christin Penny CRNP [address] [place] [address] 04/21/2024 7:15 AM EDT Office Visit Gynecology/Obstetrics [facility] [address] [place] [address] Mine Morales PA-C [address] [place] [address] Health Maintenance Due Date Last Done Comments [...] as of this encounter Visit Diagnoses Diagnosis Multigravida of advanced maternal age in third trimester- Primary Choroid plexus cyst of fetus affecting care of mother, antepartum, single or unspecified fetus Encounter for supervision of other normal in third trimester documented in this encounter Care Teams Photo Graphics Librarian Relationship Specialty Start Date End Date Diane Martínez DO [address] [place], [place] [address] PCP - General Family Medicine 09/03/11 documented as of this encounter
--- OUTSIDE RECORDS SUMMARY | 2024-01-27 03:31 | External Medical Summary | Summary of Care ---
Author Name Unknown Organization [facility] Address [address] [place] [address] Phone [phone] Care Team Providers Care Service Desk Analyst Name Role Phone Tanya Diane Linn DO Primary Care Provider Reason for Visit * Reason Comments Return Visit Encounter Details Date Type Department Care Team (Late st Contact Info) Description 12/14/2023 8:30 AM EDT Office Visit Gynecology/Obstetric s [facility] [address] [place] [address] Christin Penny CRNP [address] [facility] [place] [address] Encounter for supervision of other normal in third trimester*; Multigravida of advanced maternal age in third trimester; Choroid plexus cyst of fetus affecting care of mother, antepartum, single or unspecified fetus Allergies Active Allergy Reactions Criticality Noted Date Comments Pollen 12/22/2019 documented as of this encounter (statuses as of 12/14/2023) Medications Medication Sig Dispensed Refills Start Date End Date Status 19 29-1 MG Oral Tablet Chewable Take by mouth. 0 Activ e documented as of this encounter (statuses as of 12/14/2023) Active Problems Problem Noted Date Diagnosed Date [...] as of this encounter (statuses as of 12/14/2023) Immunizations Name Administration Dates Next Due COVID-19, [...] money to get more. Never true 06/28/2023 [place] Depression Scale Answer Date Recorded [place] Depression Scale Total 3 11/30/2023 The thought [...] Reading Time Taken Comments Blood Pressure 98/60 12/14/2023 8:15 AM EDT Pulse - - Temperature - - Respiratory Rate - - Oxygen Saturation - - Inhaled Oxygen Concentration - - Weight 68.9 kg (152 lb) 12/14/2023 8:15 AM EDT Height - - Body Mass Index 24.53 11/16/2023 8:46 AM EDT documented in this encounter Progress Notes * Christin Penny CRNP - 12/14/2023 8:35 AM EDT 32w4d Baby moving well; denies ctx, bleeding. Some heartburn, reviewed remedies with nurse. Considering vasectomy PP. 2 week return CASEY Aleman * Alicia Plaza LPN - 12/14/2023 8:15 AM EDT 32w4d Denies vaginal bleeding/rom + movement Having a lot of heartburn documented in this encounter Plan of Treatment Upcoming Encounters Date Type Department Care Team (Late st Contact Info) Description 12/28/2023 8:45 AM EDT Office Visit Gynecology/Obstetrics [facility] [address] [place] [address] Christin Penny CRNP [address] [place] [address] 01/11/2024 8:30 AM EDT Office Visit Gynecology/Obstetrics [facility] [address] [place] [address] Christin Penny CRNP [address] [place] [address] 01/18/2024 8:45 AM EDT Office Visit Gynecology/Obstetrics [facility] [address] [place] [address] Gibran Cox MD [address] [place] [address] 01/25/2024 8:30 AM EDT Office Visit Gynecology/Obstetrics [facility] [address] [place] [address] Christin Penny CRNP [address] [place] [address] 02/01/2024 8:45 AM EDT Office Visit Gynecology/Obstetrics [facility] [address] [place] [address] Christin Penny CRNP [address] [place] [address] 04/21/2024 7:15 AM EDT Office Visit Gynecology/Obstetrics [facility] [address] [place] [address] Mine Morales PA-C [address] [place] [address] Health Maintenance Due Date Last Done Comments [...] fetus documented in this encounter Care Teams Service Desk Analyst Relationship Specialty Start Date End Date Diane Mratínez DO [address] [place] [address] PCP - General Family Medicine 09/03/11 documented as of this encounter
--- OUTSIDE RECORDS SUMMARY | 2024-01-27 03:32 | External Medical Summary ---
Author Name Unknown Address Unknown Organization [id number]:[facility] [place] [facility] [address] Laboratory Report Ordering Provider Test Date Status SANDHYABACKER 11/16/2023 09:27:04 Final Observation Date Value Abnormality Reference (Units ) Status WBC, Total 11/16/2023 09:27:04 7.24 4.00-10.8 0 (K/uL) Final RBC 11/16/2023 09:27:04 3.46 3.85-5.15 (M/uL) Final Hemoglobin 11/16/2023 09:27:04 11.8 Below low normal 12 .0-15.3 (g/dL) Final Anemia reflex testing trigge rs on a HGB < 12.0 for Females and HGB < 13.0 for Males in accordance with the WHO Anemia Guidelines
Anemia reflex testing triggers on a HGB < 12.0 for Females and HGB < 13.0 for Males in accordance with the WHO Anemia Guidelines HCT 11/16/2023 09:27:04 35.5 Below low normal 36. 0-45.2 (%) Final MCV 11/16/2023 09:27:04 102.6 81.5-97.5 (fL) Final MCH 11/16/2023 09:27:04 34.1 27.0-34.0 (pg) Final MCHC 11/16/2023 09:27:04 33.2 32.0-36.0 (g/dL) Final RDW 11/16/2023 09:27:04 13.9 11.5-15.5 (%) Final Platelets 11/16/2023 09:27:04 202 140-400 (K /uL) Final MPV 11/16/2023 09:27:04 10.1 6.6-11.1 ( fL) Final Nucleated erythrocytes/100 leukocytes [Ratio] in Blood by Automated count 11/16/2023 09:27:04 0 <=0 (/100 WBCs) [facility] Performing Location [facility] [place] [address] [facility] [address]
--- OUTSIDE RECORDS SUMMARY | 2024-01-27 03:32 | External Medical Summary ---
Author Name Unknown Address Unknown Organization K01:[facility] [place] [facility] [address] [facility] [place] [address] Laboratory Report Ordering Provider Test Date Status JARON ARTHUR 11/16/2023 09:27:04 Final Observation Date Value Abnormality Reference (Units ) Status Retic, % (auto) 11/16/2023 09:27:04 2.76 Above high normal 0.80-1.90 (%) Final Reticulocytes, Absolute 11/16/2023 09:27:04 97.7 31.3-100.1 (K/uL) Final Reticulocyte fraction, immature 11/16/2023 09:27:04 21.7 Above high normal 2.5-20.6 (%) Final Reticulocyte HGB 11/16/2023 09:27:04 35.9 29.7-37.4 (pg) Final Performing Location LAB[facility] - [address] [facility] [address]
--- OUTSIDE RECORDS SUMMARY | 2024-01-27 03:32 | External Medical Summary ---
Author Name Unknown Address Unknown Organization [id number]:LAB[facility]ATORY [facility] [place] [address] - [address] [place] [address] Laboratory Report Ordering Provider Test Date Status SANDHYA,JARON 11/16/2023 09:27:04 Final Observation Date Value Abnormality Reference (Units ) Status Glucose [Moles/volume] in Serum or Plasma --1 hour post 50 g glucose PO 11/16/2023 09:27:04 90 70-129 (mg/dL) Final Performing Location LABORATORY [place] [address] - [address] [place] [address]
--- OUTSIDE RECORDS SUMMARY | 2024-01-27 03:32 | External Medical Summary ---
Author Name Unknown Address Unknown Organization K01:[facility] - [address] [place] [address] Laboratory Report Ordering Provider Test Date Status JARON ARTHUR 11/16/2023 09:27:04 Final Observation Date Value Abnormality Reference (Units ) Status Ferritin 11/16/2023 09:27:04 48 13-150 (ng /mL) Final Performing Location LABORATORY [facility] - [address] [place] [address]
--- OUTSIDE RECORDS SUMMARY | 2024-01-27 03:32 | External Medical Summary ---
Author Name Unknown Address Unknown Organization K01:[facility] - [address] [facility] [address] Laboratory Report Ordering Provider Test Date Status JARON ARTHUR 11/16/2023 09:27:04 Final Observation Date Value Abnormality Reference (Units ) Status TSH 11/16/2023 09:27:04 1.99 0.27-4.20 (uIU/mL) Final Performing Location LAB[facility] - [address] [facility] [address]
--- OUTSIDE RECORDS SUMMARY | 2024-01-27 03:32 | External Medical Summary ---
Author Name Unknown Address Unknown Organization K01:[facility] [place] [address] [facility] [address] Laboratory Report Ordering Provider Test Date Status JARON ARTHUR 11/16/2023 09:27:04 Final Observation Date Value Abnormality Reference (Units ) Status Folic Acid 11/16/2023 09:27:04 >20.0 >4.5 (ng/ mL) Final Performing Location LABORATORY [facility] - [address] [place] [address]
--- OUTSIDE RECORDS SUMMARY | 2024-01-27 03:32 | External Medical Summary | Summary of Care ---
Author Name Unknown Organization [facility] Address [address] [place] [address] Phone [phone] Care Team Providers Care Mowing Machine Operator Name Role Phone Diane Martínez Primary Care Provider Reason for Visit * Reason Comments Return Visit Encounter Details Date Type Department Care Team (Late st Contact Info) Description 10/19/2023 8:45 AM EDT Office Visit Gynecology/Obstetric s [facility] [address] [place] [address] BackerChristin CRNP [address] [place] [address] Encounter for supervision of other normal in second trimester*; Multigravida of advanced maternal age in second trimester; Choroid plexus cyst of fetus affecting care of mother, antepartum, single or unspecified fetus Allergies Active Allergy Reactions Criticality Noted Date Comments Pollen 12/22/2019 documented as of this encounter (statuses as of 10/19/2023) Medications Medication Sig Dispensed Refills Start Date End Date Status 19 29-1 MG Oral Tablet Chewable Take by mouth. 0 Activ e documented as of this encounter (statuses as of 10/19/2023) Active Problems Problem Noted Date Diagnosed Date [...] as of this encounter (statuses as of 10/19/2023) Immunizations Name Administration Dates Next Due COVID-19, MRNA-LNP, 23-24, P F, 30 MCG/0.3 mL, 12 YRS AND ABOVE, IM (PFIZER-Comirnaty) 05/14/2023 Seasonal Influenza, PF, 6 M & above, IM , (FluLaval or Fluzone) 05/03/2023,05/08/2020 TDAP (age 10 and older)(Boostrix) 06/07/2020 documented as of this encounter Social History [...] money to get more. Never true 06/28/2023 Halls Depression Scale Answer Date Recorded Halls Depression Scale Total 4 06/28/2023 The thought [...] Sign Reading Time Taken Comments Blood Pressure 110/62 10/19/2023 8:29 AM EDT Pulse - - Temperature - - Respiratory Rate - - Oxygen Saturation - - Inhaled Oxygen Concentration - - Weight 66.2 kg (146 lb) 10/19/2023 8:29 AM EDT Height - - Body Mass Index 23.57 07/27/2023 8:39 AM EST documented in this encounter Progress Notes * Alicia Plaza LPN - 10/19/2023 8:29 AM EDT 24w4d Denies vaginal bleeding/rom + movement Was seen in ER last weekend ? Anatomy scan * Christin Penny CRNP - 10/19/2023 8:29 AM EDT 24w4d Was in the ER on 10/10 with N/V, blurry vision; suspected GI illness. Normal evaluation. Feeling well since then. Baby moving well, no ctx/leaking/bleeding. Concerned with choroid plexus cyst on anatomy scan - discussed normal variant in the context of normal NIPT. She is reassured, declines further evaluation. 4 week return with labs CASEY Aleman documented in this encounter Plan of Treatment Upcoming Encounters Date Type Department Care Team (Late st Contact Info) Description 11/16/2023 8:20 AM EDT [facility] [address] [place] [address] [facility] [address] [place] [address] 11/16/2023 9:00 AM EDT Office Visit Gynecology/Obstetrics [facility] [address] [place] [address] Veronique Villa CRNP [address] [place] [address] 04/21/2024 7:15 AM EDT Office Visit Gynecology/Obstetrics [facility] [address] [place] [address] Mine Morales PA-C [address] [place] [address] Scheduled Orders Name Type Priority Associated Diagnoses Orde r Schedule 50-G GESTATIONAL GLUCOSE, 1 HOUR Lab Routine Encounter for supervision of other normal in second trimester Expected: 11/02/2023 (Approximate), Expires: 10/18/2024 SYPHILIS ANTIBODY SCREEN WITH REFLEX TO RPR Lab Routine Encounter for supervision of other normal in second trimester Expected: 11/02/2023 (Approximate), Expires: 10/18/2024 CBC WITH WBC DIFFERENTIAL AND ANEMIA REFLEX WORKUP Lab Routine Encounter for supervision of other normal in second trimester Expected: 11/02/2023 (Approximate), Expires: 10/18/2024 Health Maintenance Due Date Last Done Comments Hepatitis B (1 of 3 - 19+ 3-dose series) 2006 HPV/Co-Test 2017 Depression Screening 02/26/2021 02/27/2020 Cervical Cancer Screening 09/29/2024 Pap Smear 09/29/2024 09/29/2021, 09/12/2018, 08/19/2011 DTaP,Tdap,and Td Vaccines (2 - Td or Tdap) 06/07/2030 06/07/2020 GARDASIL-HPV IMMUNIZATION SERIES Completed 02/15/2014, 10/04/2013, [...] for supervision of other normal in second trimester- Primary Multigravida of advanced maternal age in second trimester Choroid plexus cyst of fetus affecting care of mother, antepartum, single or unspecified fetus documented in this encounter Care Teams Mowing Machine Operator Relationship Specialty Start Date End Date Diane Martínez DO [address] [place] [address] PCP - General Family Medicine 09/03/11 documented as of this encounter
--- OUTSIDE RECORDS SUMMARY | 2024-01-27 03:32 | External Medical Summary ---
Author Name Unknown Address Unknown Organization [id number][place] [facility] [place] [facility] [address] [address] Laboratory Report Ordering Provider Test Date Status SANDHYAJARON 11/16/2023 09:27:04 Final Observation Date Value Abnormality Reference (Units ) Status Creatinine 11/16/2023 09:27:04 0.6 0.5-1.0 (mg/dL) Final Glomerular filtration rate/1.73 sq M.predicted [Volume Rate/Area] in Serum, Plasma or Blood by Creatinine-based formula (CKD-EPI) 11/16/2023 09:27:04 >90 >=60 (mL/min) Final eGFR is calculated based on the CKD-EPI 2020 equation Performing Location [facility] [place] [address] [place] [address]
--- OUTSIDE RECORDS SUMMARY | 2024-01-27 03:32 | External Medical Summary ---
Author Name Unknown Address Unknown Organization [id number]:[facility]ATORY [facility] [place] - [address] [facility] [address] Laboratory Report Ordering Provider Test Date Status JARON ARTHUR 11/16/2023 09:27:04 Final Observation Date Value Abnormality Reference (Units ) Status Iron 11/16/2023 09:27:04 87 33-151 (ug /dL) Final Iron-binding capacity 11/16/2023 09:27:04 349 250-425 (ug/dL) Final Transferrin Sat % 11/16/2023 09:27:04 25 15 -55 (%) Final Performing Location [facility] [place] [facility] [address] [facility] [address]
--- OUTSIDE RECORDS SUMMARY | 2024-01-27 03:32 | External Medical Summary ---
Author Name Unknown Address Unknown Organization [id number]:[facility] [place] - [address] [facility] [address] Laboratory Report Ordering Provider Test Date Status JARON ARTHUR 11/16/2023 09:27:04 Final Observation Date Value Abnormality Reference (Units ) Status Treponema pallidum Ab [Presence] in Serum by Immunoassay 11/16/2023 09:27:04 Nonreactive Nonreactive Final No serologic evidence of syp hilis. No additional testing clinicially indicated at this time. Consider repeat testing in 2-4 weeks if acute or primary syphilis is suspected. Performing Location LAB[facility]ATORY [facility] [place] - [address] [facility] [address]
--- OUTSIDE RECORDS SUMMARY | 2024-01-27 03:32 | External Medical Summary ---
Author Name Unknown Address Unknown Organization [id number]:[place] [facility] [place] [address] [place] [address] Laboratory Report Ordering Provider Test Date Status JARON ARTHUR 11/16/2023 09:27:04 Final Observation Date Value Abnormality Reference (Units ) Status Vitamin B12 11/16/2023 09:27:04 836 236-1671 (pg/mL) Final Performing Location LABORATORY [facility] - [address] [place] [address]
--- OUTSIDE RECORDS SUMMARY | 2024-01-27 03:32 | External Medical Summary ---
Author Name Unknown Address Unknown Organization [id number]:[facility] [place] [address] [facility] [address] Laboratory Report Ordering Provider Test Date Status TERRENCE ARTHURER 11/16/2023 09:27:04 Final Observation Date Value Abnormality Reference (Units ) Status SYNC LEUKOCYTES IN BLOOD BY AUTOMATED COUNT 11/16/2023 09:27:04 7.24 4.00-10.80 (K/uL) Final Segs 11/16/2023 09:27:04 75.4 Above high normal 40.0-75.0 (%) Final Lymphs % 11/16/2023 09:27:04 18.2 18.0-42.0 (%) Final Monos 11/16/2023 09:27:04 5.0 1.0-11.0 (%) Final Eosinophils 11/16/2023 09:27:04 0.4 0.0-6.0 (%) Final Basos 11/16/2023 09:27:04 0.4 0.0-2.0 (%) Final Immature Granulocyte, Percent 11/16/2023 09:27:04 0.6 0.0-2.0 (%) Final Absolute Segs 11/16/2023 09:27:04 5.46 1.80-7.70 (K/uL) Final Lymphs, absolute 11/16/2023 09:27:04 1.32 1.00-4.80 (K/ul) Final Monos, Abs 11/16/2023 09:27:04 0.36 0.00-1.10 (K/uL) Final Eos, Abs 11/16/2023 09:27:04 0.03 0.00-0.70 (K/uL) Final Basos, Abs 11/16/2023 09:27:04 0.03 0.00-0.20 (K/uL) Final Immature Granulocytes, Number 11/16/2023 09:27:04 0.04 0.00-0.20 (K/uL) Final Performing Location [facility] [place] [address] [facility] [address]
--- OUTSIDE RECORDS SUMMARY | 2024-01-27 03:32 | External Medical Summary | Summary of Care ---
Author Name Unknown Organization [facility] Address [address] [place] [address] Phone [phone] Care Team Providers Care Production Painter Name Role Phone Tanya Diane Boatengly Primary Care Provider Reason for Visit * Reason Comments Return Visit Encounter Details Date Type Department Care Team (Late st Contact Info) Description 11/16/2023 9:00 AM EDT Office Visit Gynecology/Obstetric s [facility] [address] [place] [address] Veronique Villa CRNP [address] [place] [address] Encounter for supervision of other normal in third trimester*; Multigravida of advanced maternal age in third trimester; Choroid plexus cyst of fetus affecting care of mother, antepartum, single or unspecified fetus; Need for chobdwmifg-kqazynj-ll rtussis (Tdap) vaccine Allergies Active Allergy Reactions Criticality Noted Date [...] money to get more. Never true 06/28/2023 Mckinnon Depression Scale Answer Date Recorded Mck[place]on Depression Scale Total 4 06/28/2023 The thought [...] Sign Reading Time Taken Comments Blood Pressure 100/62 11/16/2023 8:46 AM EDT Pulse - - Temperature - - Respiratory Rate - - Oxygen Saturation - - Inhaled Oxygen Concentration - - Weight 67.1 kg (148 lb) 11/16/2023 8:46 AM EDT Height 167.6 cm (5' 6") 11/16/2023 8:46 AM EDT Body Mass Index 23.89 11/16/2023 8:46 AM EDT documented in this encounter Progress Notes * Veronique Villa CRNP - 11/16/2023 9:14 AM EDT 28w4d Complaints: none. Feeling well. Good FM. No contractions, bleeding, or LOF. Third tri labs, TDAP today. CASEY Arthur * Amanda Carrasco LPN - 11/16/2023 8:46 AM EDT 28w4d Doing glucola today Would like tdap documented in this encounter Nursing Notes * Amanda Carrasco LPN - 11/16/2023 8:57 AM EDT Patient here for tdap injection. Patient doing well no complaints. Injection given IM as ordered. Patient tolerated well. Patient to follow up as directed. Patient instructed to call if any complications. Patient verbalized understanding of instructions given and her follow up appt for 2 weeks Injection site: Left Deltoid Medication Source: Dispensed stock medication documented in this encounter Plan of Treatment Upcoming Encounters Date Type Department Care Team (Late st Contact Info) Description 11/30/2023 8:30 AM EDT [facility] [address] [place] [address] Christin Penny CRNP [address] [place] [address] 04/21/2024 7:15 AM EDT Office Visit Gynecology/Obstetrics [facility] [address] [place] [address] Mine Morales PA-C [address] [place] [address] Health Maintenance Due Date Last Done Comments [...] of mother, antepartum, single or unspecified fetus Need for ieamhruznz-xmbnwle-flnsbacat (Tdap) vaccine Need for prophylactic vaccination with combined tpuibflylm-ktaainr-seoopoirm (DTP) vaccine documented in this encounter Care Teams Production Painter Relationship Specialty Start Date End Date Diane Martínez DO [address] [place] [address] PCP - General Family Medicine 09/03/11 documented as of this encounter
[2024-01-27 06:37] LABS: Hematocrit (blood only) 37.9 % (37.0-47.0); Hemoglobin 13.2 g/dl (12.0-16.0); Mean Corpuscular Hemoglobin 33.2 pg (25.0-34.0); Mean Corpuscular Hgb Conc 34.8 g/dL (32.0-36.0); Mean Corpuscular Volume 95.2 fL (80.0-100.0); Mean Platelet Volume 10.7 fL (9.4-12.4); Platelet Count 177 K/uL (130-400); RDW Coefficient of Variation 13.3 % (11.5-14.5); RDW Standard Deviation 46.2 fL (36.4-46.3); Red Blood Count 3.98 M/uL (4.20-5.40); White Blood Count 12.82 K/ul (4.8-10.8)
[2024-01-27] MEDS: FERROUS SULFATE 325 MG TAB PO SCH (08:16)
[2024-01-27] MEDS: PRENATAL VITAMIN 1 TAB PO SCH (08:16)
[2024-01-27] MEDS: DIPHTHER/TETAN/PERTUS Vaccine (Tdap, Adol/Adult) 0.5mL IM ONE (08:16)
[2024-01-27] MEDS: MEASLES, MUMPS & RUBELLA VIRUS VACCINE (MMR) 0.5ML VIAL SQ ONE (08:17)
--- NOTE | 2024-01-27 08:55 | Obstetrical Progress Note ---
Date of Service January 27, 2024 Assessment & Plan Admission and Anticipated Discharge Date Admission Date: January 26, 2024 OB Progress Note abdomen soft and non tender ambulating well no calf tenderness vaginal bleeding scant hgb 13.2 patient requests discharge Results & Data Vital Signs (Past 12 Hours) Vital Signs Temp Pulse Resp BP Pulse Ox O2 Del Method 01/27/24 07:15 36.8 C 87 18 106/73 96 Room Air 01/27/24 04:18 36.5 C 68 16 115/75 Room Air 01/27/24 00:15 36.7 C 73 16 109/71 Room Air 01/26/24 21:00 36.5 C 60 16 129/73 Room Air
[2024-01-27] MEDS ORDERED: bisacodyL 5 MG TABEC PO SCH (20:00)
== END 2024-01-27 16:15 | disposition home or self-care (01) | DRG 807 ==
LOC: OPB 14:09 → 4S1 14:12 → 4E2 17:20